=== PATIENT | female | born 1950 | race Caucasian/White ===

== ENCOUNTER 2024-12-29 03:30 | Emergency (ER) | payer OTHER ==
[2024-12-29 04:51] LABS: Absolute Eosinophils 0.1 K/uL (0-0.5); Absolute Lymphocytes (CBC) 1.3 K/uL (0.7-4.9); Absolute Monocytes 0.8 K/uL (0.1-1.3); Absolute Neutrophil 7.7 K/uL (1.8-8.0); Basophils % 0.4 % (0-1.3); Eosinophils % 1.2 % (0-4.4); Hematocrit 33.8 % (36.0-45.0); Hemoglobin 11.6 g/dL (12.0-15.0); Lymphocytes % 13.3 % (15.3-44.8); MCH 30.6 pg (27.0-35.0); MCHC 34.2 g/dL (32.0-36.0); MCV 89.5 fL (80-100); MPV 7.8 fL (7.6-11.3); Monocytes % 7.7 % (3.3-12.3); Neutrophils % 77.4 % (41.7-73.7); Platelets 387 thou/uL (152-406); RBC Red Blood Cell Count 3.77 M/uL (3.86-4.86)
[2024-12-29] MEDS ORDERED: ONDANSETRON 4 MG/2 ML VIAL ONE (05:13)
[2024-12-29] MEDS ORDERED: NA CHLORIDE 0.9% 1,000 ML ONE (05:13)
[2024-12-29 05:16] LABS: Albumin 3.5 g/dL (3.4-5.0); Anion Gap 11.1 mEq/L (5.0-15.0); Bilirubin Total 0.3 mg/dL (0.2-1.0); Globulin 3.5 g/dL (2.3-3.5); Troponin High Sensitivity 4.5 pg/mL (<58.9)
[2024-12-29 05:17] LABS: Potassium 4.1 mEq/L (3.5-5.1)
--- NOTE | 2024-12-29 06:13 | RAD REPORT ---
EXAMINATION: Abdomen Pelvis W Contrast CLINICAL INDICATION: Female, 74 years old.ABD PAIN TECHNIQUE: CT abdomen and pelvis was performed, after the administration of IV contrast, [facility]. Axial, sagittal and coronal reconstructions were obtained. One or more of the following dose reduction techniques were used: Automated exposure control, adjustment of the mA and/o r kV according to patient size, and/or iterative reconstruction. Unless otherwise specified, incidental findings do not require dedicated imaging follow-up. [id number]. COMPARISON: No prior exam. FINDINGS: LOWER CHEST: No acute process identified.No significant pericardial effusion. Mild circumferential th ickening of the distal esophagus which could reflect esophagitis. UPPER GI: No significant abnormality. LIVER: Benign appearing low density liver lesions. No suspicious mass. GALLBLADDER/BILE DUCTS: Cholecystectomy? PANCREAS: No mass, ductal dilation, or lj-pancreatic fluid. SPLEEN: Unremarkable. ADRENALS: No adrenal masses. KIDNEYS AND URETERS: No hydronephrosis.Low density and/or too small to characterize renal lesions whi ch are statistically benign.Nonobstructing renal calculi. ABDOMINAL AORTA AND OTHER VESSELS: Mild atherosclerotic changes. PERITONEUM: No abnormal free fluid. No free air. LYMPH NODES: No pathologic lymphadenopathy. ABDOMINAL WALL: Unremarkable SMALL BOWEL/COLON: Small bowel has normal course and caliber. No colonic wall thickening or pericolon ic inflammatory changes.Normal appendix. URINARY BLADDER: Underdistended but grossly unremarkable. REPRODUCTIVE ORGANS: Tubal ligation. MUSCULOSKELETAL: Multilevel degenerative changes in the spine. No acute fracture. ADDITIONAL FINDINGS: None. IMPRESSION: No acute findings within the abdomen or pelvis. No appendicitis. Incidental findings as noted above.
--- NOTE | 2024-12-29 06:23 | EDPHYS ---
Physician Documentation [facility] Name: Kathe Mast Age: 74 yrs Sex: Female : 1950 Arrival Date: 12/29/2024 Time: 03:30 Bed 18 Private MD: ED Physician Deep Hernandez HPI: 12/29 05:48 This 74 yrs old Female presents to ER via Ambulatory with complaints of Bloody stool sp3 for the last hour. 05:48 74-year-old female with recent colonoscopy, on Plavix, presents to the ED with chief sp3 complaint diarrhea and rectal bleeding. She states she had a polyp removed with a clip placed approximately 10 days ago at [facility] in [place]. Patient has no other bleeding anywhere else. She has no significant abdominal pain currently. Review of systems otherwise negative.. Historical: - Allergies: 03:44 Aspirin; kl 03:44 PENICILLINS; kl 03:44 E.E.S. 400; kl 03:44 NSAIDS; kl - Home Meds: 03:44 Plavix 75 mg Oral tablet [Active]; kl - PSHx: 03:44 Ankle; wrist; kl - Immunization history:: Adult Immunizations up to date. - Infectious Disease History:: Denies. - Social history:: Smoking status: Patient/guardian denies using tobacco, but has a distant history of tobacco abuse. ROS: 05:51 Constitutional: Negative for fever, chills, and weight loss, Eyes: Negative for injury, sp3 pain, redness, and discharge, Neck: Negative for injury, pain, and swelling, Cardiovascular: Negative for chest pain, palpitations, and edema, Respiratory: Negative for shortness of breath, cough, wheezing, and pleuritic chest pain, Back: Negative for injury and pain, MS/Extremity: Negative for injury and deformity, Skin: Negative for injury, rash, and discoloration, Neuro: Negative for headache, weakness, numbness, tingling, and seizure, Psych: Negative for depression, anxiety, suicide ideation, homicidal ideation, and hallucinations, Allergy/Immunology: Negative for hives, rash, and allergies, Endocrine: Negative for neck swelling, polydipsia, polyuria, polyphagia, and marked weight changes, Hematologic/Lymphatic: Negative for swollen nodes, abnormal bleeding, and unusual bruising, 05:51 All other systems are negative, Exam: 05:51 Constitutional: This is a well developed, well nourished patient who is awake, alert, sp3 and in no acute distress. Head/Face: Normocephalic, atraumatic. Eyes: Pupils equal round and reactive to light, extra-ocular motions intact. Lids and lashes normal. Conjunctiva and sclera are non-icteric and not injected. Cornea within normal limits. Periorbital areas with no swelling, redness, or edema. Neck: Trachea midline, no thyromegaly or masses palpated, and no cervical lymphadenopathy. Supple, full range of motion without nuchal rigidity, or vertebral point tenderness. No Meningismus. Chest/axilla: Normal chest wall appearance and motion. Nontender with no deformity. No lesions are appreciated. Cardiovascular: Regular rate and rhythm with a normal S1 and S2. No gallops, murmurs, or rubs. Normal PMI, no JVD. No pulse deficits. Respiratory: Lungs have equal breath sounds bilaterally, clear to auscultation and percussion. No rales, rhonchi or wheezes noted. No increased work of breathing, no retractions or nasal flaring. Back: No spinal tenderness. No costovertebral tenderness. Full range of motion. Skin: Warm, dry with normal turgor. Normal color with no rashes, no lesions, and no evidence of cellulitis. MS/ Extremity: Pulses equal, no cyanosis. Neurovascular intact. Full, normal range of motion. Neuro: Awake and alert, GCS 15, oriented to person, place, time, and situation. Cranial nerves II-XII grossly intact. Motor strength 5/5 in all extremities. Sensory grossly intact. Cerebellar exam normal. Normal gait. Psych: Awake, alert, with orientation to person, place and time. Behavior, mood, and affect are within normal limits. 05:51 Abdomen/GI: Mild pain on deep palpation lower quadrants. No peritoneal signs, rebound or guarding. Vital signs are normal., 06:06 ECG was reviewed by the Attending Physician. EKG demonstrates normal sinus rhythm at 85 sp3 bpm with normal intervals, normal QRS, normal axis, normal ST/T-segment's without evidence of acute ischemia. Vital Signs: 03:41 BP 144 / 91; Pulse 100; Resp 18; Temp 98(O); Pulse Ox 99% on R/A; Weight 65.77 kg (R); kl Height 5 ft. 2 in. ; Pain 0/10; 06:24 BP 114 / 69; Pulse 81; Resp 18 S; Pulse Ox 98% on R/A; ha1 03:41 Body Mass Index 26.52 (65.77 kg, 157.48 cm) kl 03:41 Pain Scale: Adult kl MDM: 03:57 Medical Screening Exam initiated sp3 05:53 Data reviewed: vital signs, nurses notes, lab test result(s), radiologic studies. ED sp3 course: 74-year-old female with abdominal pain, diarrhea and mild GI bleeding status post colonoscopy 10 days ago with polyp removal and clip. She is concerned about clip dislodgment. CT scan and labs pending. Disposition pending workup and patient course.. 06:22 ED course: Full workup negative. Will safely discharge patient home at this time. Heart sp3 rate on discharge in the low 90s. Blood pressure 140/86.. 12/29 03:58 Order name: CBC with Diff; Complete Time: 05:18 sp3 12/29 03:58 Order name: CMP; Complete Time: 05:18 sp3 12/29 03:58 Order name: Lipase; Complete Time: 05:18 sp3 12/29 03:58 Order name: Lactate w/ 2H reflex if indic.; Complete Time: 05:18 sp3 12/29 03:58 Order name: Troponin High Sensitivity; Complete Time: 05:18 sp3 12/29 03:58 Order name: CT Abd/Pelvis - IV Contrast Only; Complete Time: 06:14 sp3 12/29 03:58 Order name: EKG; Complete Time: 03:58 sp3 12/29 03:58 Order name: IV Saline Lock; Complete Time: 05:10 sp3 12/29 03:58 Order name: Labs collected and sent; Complete Time: 05:10 sp3 12/29 03:58 Order name: EKG - Nurse/Tech; Complete Time: 05:10 sp3 Administered Medications: 05:24 Drug: Ondansetron IVP 4 mg IVP once; over 2 minutes Route: IVP; Site: left antecubital; ha1 06:00 Follow up: Response: No adverse reaction; Marked relief of symptoms ha1 05:24 Drug: NS 0.9% IV 1000 ml IV at 1 bolus Per protocol; to be given as a bolus over 60 ha1 minutes Route: IV; Rate: 1 bolus; Site: left antecubital; 06:39 Follow up: Response: No adverse reaction; IV Status: Completed infusion ha1 Disposition Summary: 12/29/24 06:23 Discharge Ordered Notes: Location: Home sp3 Condition: Stable sp3 Diagnosis - Bloody diarrhea, resolved sp3 Followup: sp3 - With: Private Physician - When: Upon discharge from the Emergency Department - Reason: Continuance of care Discharge Instructions: - Discharge Summary Sheet sp3 - Rectal Bleeding sp3 Forms: - Medication Reconciliation Form sp3 - Antibiotic Education sp3 - Prescription Opioid Use sp3 - Patient Portal Instructions sp3 - Leadership Thank You Letter sp3 Signatures: Dispatcher [employer] Bernice Goldberg RN RN kl Patel, Setul, MD MD 3 Neris Garvin RN RN ha1 Corrections: (The following items were deleted from the chart) 03:47 03:44 Allergies: No Known Allergies; karena thurston
--- NOTE | 2024-12-29 06:23 | ER ---
Nurse's Notes [facility] Name: Kathe Mast Age: 74 yrs Sex: Female : 1950 Arrival Date: 12/29/2024 Time: 03:30 Bed 18 Private MD: Diagnosis: Bloody diarrhea, resolved Presentation: 12/29 03:41 Chief complaint: Patient states: rectal bleeding began this evening reports clots 10 kl days post colonoscopy with polyp removal reports being treated for UTI takes Plavix for history of PE/ Blood clot. Coronavirus screen: Vaccine status: Patient reports receiving the 2nd dose of the covid vaccine. Ebola Screen: Patient negative for fever greater than or equal to 101.5 degrees Fahrenheit, and additional compatible Ebola Virus Disease symptoms. Initial Sepsis Screen: Does the patient meet any 2 criteria? No. Patient's initial sepsis screen is negative. Does the patient have a suspected source of infection? No. Patient's initial sepsis screen is negative. Risk Assessment: Do you want to hurt yourself or someone else? Patient reports no desire to harm self or others. 03:41 Method Of Arrival: Ambulatory 03:41 Acuity: FRANKIE 3 kl 06:39 Onset of symptoms was December 29, 2024. ha1 Triage Assessment: 03:47 General: Appears in no apparent distress. Behavior is calm, cooperative. Pain: Denies kl pain. GI: Reports bloody stool. Historical: - Allergies: 03:44 Aspirin; kl 03:44 PENICILLINS; kl 03:44 E.E.S. 400; kl 03:44 NSAIDS; kl - Home Meds: 03:44 Plavix 75 mg Oral tablet [Active]; kl - PSHx: 03:44 Ankle; wrist; kl - Immunization history:: Adult Immunizations up to date. - Infectious Disease History:: Denies. - Social history:: Smoking status: Patient/guardian denies using tobacco, but has a distant history of tobacco abuse. Screenin:25 [facility] ED Fall Risk Assessment (Adult) History of falling in the last 3 months, ha1 including since admission No falls in past 3 months (0 pts) Confusion or Disorientation No (0 pts) Intoxicated or Sedated No (0 pts) Impaired Gait No (0 pts) Mobility Assist Device Used No (0 pt) Altered Elimination No (0 pt) Score/Fall Risk Level 0 - 2 = Low Risk Oriented to surroundings, Maintained a safe environment, Educated pt \T\ family on fall prevention, incl call for assistance when getting out of bed, Hourly rounding (assess needs \T\ fall precautionary measures) done. Abuse screen: Denies threats or abuse. Denies injuries from another. Nutritional screening: No deficits noted. Tuberculosis screening: No symptoms or risk factors identified. Assessment: 04:00 General: Appears comfortable, Behavior is calm, cooperative. Pain: Denies pain. Neuro: ha1 Level of Consciousness is awake, alert, obeys commands, Oriented to person, place, time, situation. Cardiovascular: Patient's skin is warm and dry. Respiratory: No deficits noted. Airway is patent Trachea midline Respiratory effort is even, unlabored, Respiratory pattern is regular, symmetrical. GI: Abdomen is round non-distended, obese, Reports bloody stool. : No signs and/or symptoms were reported regarding the genitourinary system. Derm: Skin is pink, warm \T\ dry. Musculoskeletal: Circulation, motion, and sensation intact. Range of motion: intact in all extremities. 05:10 Reassessment: Patient and/or family updated on plan of care and expected duration. Pain ha1 level reassessed. Patient is alert, oriented x 3, equal unlabored respirations, skin warm/dry/pink. 06:24 Reassessment: Patient and/or family updated on plan of care and expected duration. Pain ha1 level reassessed. Patient is alert, oriented x 3, equal unlabored respirations, skin warm/dry/pink. Vital Signs: 03:41 BP 144 / 91; Pulse 100; Resp 18; Temp 98(O); Pulse Ox 99% on R/A; Weight 65.77 kg (R); kl Height 5 ft. 2 in. ; Pain 0/10; 06:24 BP 114 / 69; Pulse 81; Resp 18 S; Pulse Ox 98% on R/A; ha1 03:41 Body Mass Index 26.52 (65.77 kg, 157.48 cm) 03:41 Pain Scale: Adult kl ED Course: 03:36 Patient arrived in ED. gm2 03:44 Triage completed. 03:47 Patient has correct armband on for positive identification. Placed in gown. Bed in low ha1 position. Call light in reach. Side rails up X 1. 03:47 Provided Education on: follow ups . ha1 03:48 Deep Hernandez MD is Attending Physician. sp3 04:29 Inserted saline lock: 22 gauge in left antecubital area, using aseptic technique. Blood ha1 collected. Flushed with 10 mL NS. 04:49 Lactate w/ 2H reflex if indic. Sent. ha1 04:49 Troponin High Sensitivity Sent. ha1 04:49 CBC with Diff Sent. ha1 04:49 CMP Sent. ha1 04:49 Lipase Sent. ha1 05:10 Lactate w/ 2H reflex if indic. Sent. ha1 05:10 Troponin High Sensitivity Sent. ha1 05:10 CMP Sent. ha1 05:10 Lipase Sent. ha1 05:18 Neris Garvin, RN is Primary Nurse. ha1 05:37 EKG done, by ED staff, reviewed by Deep Hernandez MD. oe 05:39 CT Abd/Pelvis - IV Contrast Only In Process Unspecified. EDMS 06:37 No provider procedures requiring assistance completed. IV discontinued, intact, ha1 bleeding controlled, No redness/swelling at site. Pressure dressing applied. 06:37 Arm band placed on right wrist. ha1 Administered Medications: 05:24 Drug: Ondansetron IVP 4 mg IVP once; over 2 minutes Route: IVP; Site: left antecubital; ha1 06:00 Follow up: Response: No adverse reaction; Marked relief of symptoms ha1 05:24 Drug: NS 0.9% IV 1000 ml IV at 1 bolus Per protocol; to be given as a bolus over 60 ha1 minutes Route: IV; Rate: 1 bolus; Site: left antecubital; 06:39 Follow up: Response: No adverse reaction; IV Status: Completed infusion ha1 Medication: 06:39 VIS not applicable for this client. ha1 Outcome: 06:23 Discharge ordered by . sp3 06:38 Discharged to home ambulatory, ha1 06:38 Condition: stable 06:38 Discharge instructions given to patient, Instructed on discharge instructions, follow up and referral plans. Demonstrated understanding of instructions, follow-up care, 06:39 Patient left the ED. ha1 Signatures: Dispatcher [employer] EDMS Bernice Jain RN RN kl Espinosa, [place] oe Deep Hernandez MD MD sp3 Neris Garvin RN RN ha1 Nkechi Thompson gm2 Corrections: (The following items were deleted from the chart) 03:47 03:44 Allergies: No Known Allergies; kl kl
[2024-12-29 07:36] VITALS: TEMP 98
[2024-12-29 07:38] VITALS: BP 114/69; O2SAT 98
--- NOTE | 2024-12-29 16:25 | EKG ---
Test Date: 2024-12-29 Test Time: 04:46:26 Barrel Polisher Inside: GEOFFREY MEASUREMENT RESULTS: Intervals: Rate: 85 FL: 152 QRSD: 70 QT: 364 QTc: 433 [place]: P: 70 FL: 152 QRS: 70 T: 68 INTERPRETIVE STATEMENTS: Normal sinus rhythm Low voltage QRS Borderline ECG No previous ECG available for comparison Electronically Signed On 12-29-24 16:24:54 CDT by Dimitris Lockett
== END 2024-12-29 06:39 | disposition home or self-care (01) ==
LOC: ER 03:30
DX: K92.1 Melena (principal); Z98.890 Other specified postprocedural states; Z79.01 Long term (current) use of anticoagulants
CPT/HCPCS: 96361; 93005; 85025; 36415; 83605; 84484; 83690; 80053; 74177; 96374; 99284; Q9967; J2405; J7030